=== PATIENT | female | born 2000 | race Two or more races ===

== ENCOUNTER 2024-05-03 20:11 | Emergency (ER) | payer BC, SELFPAY ==
--- NOTE | ~2024-05-03 | US_ITS ---
EXAMINATION: US OB <= 14 weeks fetus DATE: 05/04/2024 02:10 INDICATION: Vaginal bleeding and abdominal cramping during first trimester TECHNIQUE: Real-time pelvic ultrasound utilizing transabdominal probe was performed. The tom frank radiologist was not present for the study. COMPARISON: None. FINDINGS: The uterus measures 8.9 x 6.0 x 7.3 cm. There is an intrauterine gestational sac with a double decid ual sign but no yolk sac or pole yet apparent..The mean sac diameter measures 2.1 cm which lionel elates with an estimated gestational age of 7 weeks and 0 days. 10 x 6 mm hypoechoic likely subchorio carmen hematoma along the left side of the gestational sac. The right ovary measures 3.3 x 2.3 x 3.1 cm. The left ovary measures 5.3 x 4.6 x 3.3 cm. Vascular isiah w identified at both ovaries on color Doppler. There is no free fluid in the pelvis. IMPRESSION: 1. Single 2.1 cm diameter intrauterine gestational sac without discernible yolk sac or pole whi ch is suspicious for but not diagnostic of failed . Recommend follow-up serial beta-hCG leve ls with repeat imaging as clinically indicated. 2. Gestational age by ultrasound based upon mean sac diameter of 7 weeks 0 day(s) +/- 4 day(s) with ultrasound estimated date of delivery (DANICA) of 12/21/2024. 3. 10 x 6 mm subchorionic hematoma. Reviewed, dictated and finalized at location A. [employer] IMPRESSION: 1. Single 2.1 cm diameter intrauterine gestational sac without discernible yolk sac or pole which is suspicious for but not diagnostic of failed pregnan cy. Recommend follow-up serial beta-hCG levels with repeat imaging as clinicall y indicated. 2. Gestational age by ultrasound based upon mean sac diameter of 7 weeks 0 day (s) +/- 4 day(s) with ultrasound estimated date of delivery (DANICA) of 12/21/2024. 3. 10 x 6 mm subchorionic hematoma.
[2024-05-03 21:11] VITALS: BP 122/86; PULSE 68; RESP 20; TEMP 36.8; O2SAT 99
[2024-05-03 23:21] VITALS: BP 109/73; PULSE 93; RESP 18; TEMP 37.2; O2SAT 100
[2024-05-04 00:17] VITALS: BP 111/84; PULSE 84; RESP 16; TEMP 36.6; O2SAT 100
--- NOTE | 2024-05-04 00:49 | PC.NURSE ---
Patient called out to nursing station and advised that her abdomen was starting to hurt. Notified EDP JOAN Stevens.
--- NOTE | 2024-05-04 01:09 | ED_ITS ---
HPI - General Chief complaint: PSYCHOLOGY ASSOCIATE Stated complaint: vaginal bleeding Time Seen by Provider: 05/04/24 00:12 History of Present Illness HPI Narrative: Patient is a 23-year-old female who presents to the ER with complaints of abdominal pain and vaginal bleeding, following a positive test at home. She reports her last menstrual period was on the 19 of February, but her menstrual periods tend to be irregular. Patient reports her symptoms started approximately 2-3 days ago. She endorses some spotting similar to the amount of blood at the end of a period. Patient also endorses urinary symptoms and nausea. She denies any history of STDs and reports her only medical history is a hernia that has not been repaired. Patient denies any fevers, chest pain, signs/symptoms of infection, lightheadedness or dizziness. Related Data Allergies Allergy/AdvReac Type Severity Reaction Status Date / Time No Known Allergies Allergy Verified 05/03/24 21:20 Review of Systems 2 Review of Systems: All systems reviewed & are unremarkable except as noted in HPI and below Exam 2 Narrative: GENERAL: Well appearing, well-nourished, non-toxic, in no acute distress. HEAD: Normocephalic, atraumatic. NECK: Supple. No adenopathy, no masses. RESPIRATORY: Airway patent, respirations nonlabored. Clear to auscultation bilaterally, no rales, rhonchi, wheezing. CARDIOVASCULAR: Regular rate and rhythm without murmurs, rubs, or gallops. Peripheral pulses 2+ and equal bilaterally. ABDOMINAL: Soft, tender with palpation (especially in LLQ), nondistended, no hepatosplenomegaly. Normoactive BS. MUSCULOSKELETAL: Moves all extremities. Strength/ROM intact without gross deformities. SKIN: Warm, dry, normal color. No rashes. NEURO: A&O X3. Speech clear. Cranial nerves II-XII grossly intact. Steady gait. No ataxic movements. PSYCHIATRIC: Appropriate mood and affect. Normal interaction. Course Vital Signs Vital signs: Vital Signs Temperature 36.8 C 05/03/24 21:11 Pulse Rate 68 05/03/24 21:11 Respiratory Rate 20 05/03/24 21:11 Blood Pressure 122/86 05/03/24 21:11 Pulse Oximetry 99 05/03/24 21:11 Oxygen Delivery Room Air 05/03/24 21:11 Temperature 36.6 C 05/04/24 02:41 Pulse Rate 92 05/04/24 02:41 Respiratory Rate 16 05/04/24 02:41 Blood Pressure 101/73 05/04/24 02:41 Pulse Oximetry 100 05/04/24 02:41 Oxygen Delivery Room Air 05/03/24 21:11 MDM - OB/Uterine Contractions MDM Narrative Medical decision making narrative: Patient is a 23-year-old female who presents to the ER with complaints of abdominal pain and vaginal bleeding, following a positive test at home. She reports her last menstrual period was on the 19 of February, but her menstrual periods tend to be irregular. Patient reports her symptoms started approximately 2-3 days ago. She endorses some spotting similar to the amount of blood at the end of a period. Patient also endorses urinary symptoms and nausea. She denies any history of STDs and reports her only medical history is a hernia that has not been repaired. Patient denies any fevers, chest pain, signs/symptoms of infection, lightheadedness or dizziness. Labs Ordered: UA, CMP, CBC, INR, PTT, beta HCG Imaging Ordered: US OB < 14 weeks fetus Results: Patient's CBC was unremarkable. Her CMP indicated a sodium of 136, creatinine of 0.5 so patient given 1 L normal saline IV bolus. Her urinalysis indicated 1+ ketones, 1+ blood, trace leukocytes, 3-5 RBCs. Patient's ultrasound indicates ............................. Diagnosis: threatened , abnormal vaginal bleeding Patient Education/Shared MDM: Results shared with the patient. She verbalizes understanding of need to follow-up with outpatient OBGYN. It is advised that she has repeat hCG levels drawn as an outpatient. Patient make take Tylenol for discomfort. She and her significant other verbalized understanding and are in agreement with plan. 0330- [facility] signed out to Dr. Oliver. Differential Diagnosis Differential diagnosis: Likely other (UTI, threatened , abnormal vaginal bleeding during , subchorionic hemorrhage) Lab Data Attestation: I reviewed the patient's lab results. 05/04/24 01:22 05/04/24 01:22 Labs: Lab Results 05/04/24 Range/Units 01:22 WBC 8.9 (4.5-10.0) K/mm3 RBC 4.45 (4.2-5.4) M/mm3 Hgb 12.8 (12.0-15.0) g/dL Hct 39.2 (37.0-47.0) % MCV 88.1 (80-100) fl MCH 28.8 (26-34) pg MCHC 32.7 (32-36) g/dl RDW 14.2 (11.5-14.5) % Plt Count 329 (150-375) k/mm3 MPV 8.9 (7.4-10.4) fl Immature Gran % (Auto) 0.3 (0-0.5) % Neut % (Auto) 64.7 (45.5-73.1) % Lymph % (Auto) 25.5 (18.3-44.2) % [place] % (Auto) 7.8 (2.6-8.5) % Eos % (Auto) 1.2 (0-4.4) % Baso % (Auto) 0.5 (0.2-1.2) % Lymph # (Auto) 2.26 (0.9-3.2) K/mm3 [place] # (Auto) 0.7 H (0.1-0.6) K/mm3 Eos # (Auto) 0.1 (0-0.3) K/mm3 Baso # (Auto) 0.0 (0.0-0.1) K/mm3 Abs Immat Gran (auto) 0.03 (0.00-0.031) K/mm3 Absolute Neuts (auto) 5.7 (1.3-6.7) K/mm3 Absolute Nucleated RBC 0.000 (0.0-0.012) K/mm3 Nucleated RBC % 0.0 (0.0-0.2) % PT 14.1 (11.1-14.7) Seconds INR 1.1 APTT 29.3 (22.3-36.8) Seconds Sodium 136 L (137-145) mmol/L Potassium 3.8 (3.4-5.0) mmol/L Chloride 104 (98-107) mmol/L Carbon Dioxide 25 (22-30) mmol/L Anion Gap 7 (4-12) mmol/L BUN 9 (7-17) mg/dL Creatinine 0.50 L (0.7-1.0) mg/dL Estim Creat Clear Calc 128 ml/min Estimated GFR > 60 (59 - ) Glucose 93 (65-110) mg/dL Calcium 9.2 (8.4-10.2) mg/dL Total Bilirubin 0.8 (0.2-1.3) mg/dL AST 33 (14-36) U/L ALT 21 (6-35) U/L Alkaline Phosphatase 74 (38-126) U/L Total Protein 8.0 (6.3-8.2) g/dL Albumin 4.5 (3.5-5.1) g/dL Beta HCG, Quant 69889.00 mIU/ML Urine Color Yellow (Yellow) Urine Appearance Cloudy H (Clear) Urine pH 6.0 (5.0-9.0) Ur Specific [place] 1.026 (1.001-1.035) Urine Protein Trace (Negative) mg/dL Urine Glucose (UA) Negative (Negative) mg/dL Urine Ketones 1+ H (Negative) mg/dL Ur Blood (Man) 1+ H (Negative) Urine Nitrate Negative (Negative) Urine Bilirubin Negative (Negative) Urine Urobilinogen 0.2 (<2.0) mg/dL Leukocyte Esterase Rfl Trace H (Negative) JULISSA/UL Urine RBC 3-5 H (0-2) /hpf Urine WBC 0-5 (0-3) /hpf Ur Squamous Epith Cells Few (Few) /hpf Urine Test Positive Discharge Plan Discharge Clinical Impression: Threatened in first trimester, Abnormal vaginal bleeding Patient Disposition: Home, Self-Care Condition: Stable Instructions: Antibiotic Form, Threatened Miscarriage (ED), Abnormal (Dysfunctional) Uterine Bleeding (ED), Abdominal Pain in (ED) Additional Instructions: Please return to the ER with an worsening symptoms. Follow-up with OBGYN in the next 1-2 days. Patient Language: [place] Leone[place] Follow-up/Referrals: Elvin Villarreal MD [Physician] - (OBGYN) UNKNOWN,DOCTOR [Primary Care Provider] -
[2024-05-04] MEDS: SODIUM CHLORIDE 0.9% IV 1,000 ML 999 ML IV CONT (01:21)
[2024-05-04 01:29] LABS: Basophils Percent Auto 0.5 % (0.2-1.2); Eosinophils Absolute Auto 0.1 K/mm3 (0-0.3); Eosinophils Percent Auto 1.2 % (0-4.4); Hematocrit 39.2 % (37.0-47.0); Hemoglobin 12.8 g/dL (12.0-15.0); Immature Granulocyte Absolute 0.03 K/mm3 (0.00-0.031); Immature Granulocyte Percent A 0.3 % (0-0.5); Lymphocytes Absolute Auto 2.26 K/mm3 (0.9-3.2); Lymphocytes Percent Auto 25.5 % (18.3-44.2); Mean Corpuscular HGB Conc 32.7 g/dl (32-36); Mean Corpuscular Hemoglobin 28.8 pg (26-34); Mean Corpuscular Volume 88.1 fl (80-100); Mean Platelet Volume 8.9 fl (7.4-10.4); Monocytes Absolute Auto 0.7 K/mm3 (0.1-0.6); Monocytes Percent Auto 7.8 % (2.6-8.5); Neutrophils Absolute Auto 5.7 K/mm3 (1.3-6.7); Neutrophils Percent Auto 64.7 % (45.5-73.1); Platelet Count Result 329 k/mm3 (150-375); Red Blood Count 4.45 M/mm3 (4.2-5.4); Red Cell Distribution Width 14.2 % (11.5-14.5); White Blood Count 8.9 K/mm3 (4.5-10.0)
[2024-05-04 01:31] LABS: Pregnancy On Board Control Positive; Urine Pregnancy Test Positive
[2024-05-04 01:33] LABS: Add Urine Microscopic? YES; Appearance Urine Cloudy (Clear); Bilirubin Urine Negative (Negative); Blood Urine 1+ (Negative); Color Urine Yellow (Yellow); Glucose Urine UA Negative (Negative); Ketones Urine 1+ mg/dL (Negative); Leukocyte Esterase Ur Trace LEU/UL (Negative); Nitrate Urine Negative (Negative); Protein Urine Trace mg/dL (Negative); Specific Grav Ur 1.026 (1.001-1.035); Urobilinogen Urine 0.2 mg/dL (<2.0)
[2024-05-04 01:35] LABS: Squamous Epithelial Cell Urine Few /hpf (Few); WBC Urine 0-5 /hpf (0-3)
[2024-05-04 01:44] LABS: INR 1.1; Partial Thromboplastin Time 29.3 Seconds (22.3-36.8); Prothrombin Time 14.1 Seconds (11.1-14.7)
[2024-05-04 01:55] LABS: Alanine Aminotransferase 21 U/L (6-35); Albumin Level 4.5 g/dL (3.5-5.1); Alkaline Phosphatase 74 U/L (38-126); Anion Gap 7 mmol/L (4-12); Aspartate Amino Transferase 33 U/L (14-36); Bilirubin,Total 0.8 mg/dL (0.2-1.3); Blood Urea Nitrogen 9 mg/dL (7-17); Calcium 9.2 mg/dL (8.4-10.2); Carbon Dioxide 25 mmol/L (22-30); Chloride 104 mmol/L (98-107); Estimated CRCL calculation 128 ml/min; Estimated Glomerular Filt Rate > 60; Glucose 93 mg/dL (65-110); Potassium 3.8 mmol/L (3.4-5.0); Sodium 136 mmol/L (137-145)
[2024-05-04 02:41] VITALS: BP 101/73; PULSE 92; RESP 16; TEMP 36.6; O2SAT 100
[2024-05-04 04:26] VITALS: BP 111/72; PULSE 85; RESP 14; TEMP 36.5; O2SAT 97
[2024-05-04 06:11] VITALS: BP 100/71; PULSE 78; RESP 16; TEMP 36.5; O2SAT 100
== END 2024-05-04 06:41 | disposition home or self-care (01) ==
PROVIDERS: Emergency Provider Registered Nurse
DX: O20.0 Threatened abortion (principal)
CPT/HCPCS: 36415; 76801; 80053; 81001; 81025; 84702; 85025; 85610; 85730; 96360; 99284; J7030